=== PATIENT | female | born 1975 | race Asian ===

== ENCOUNTER 2024-03-16 17:00 | Outpatient (CLI) | payer BC, SELFPAY | END 2024-03-16 17:01 | disposition home or self-care (01) | LOC: AMB 04-21 04:15 | PROVIDERS: PCP Nurse Practitioner; Visit Provider Emergency Medicine Emergency Medical Services | DX: S32.89XA Fracture of other parts of pelvis, initial encounter for closed fracture (principal); R03.1 Nonspecific low blood-pressure reading | CPT/HCPCS: A0425; A0434 ==